=== PATIENT | male | born 1955 | race Caucasian/White ===

== ENCOUNTER 2016-05-07 16:48 | Emergency (ER) | payer MEDICARE ==
[~2016-05-07 16:48] MED LIST: ASPIRIN81 M2 PO; FISH OIL 1,0001 CAP PO; GARLIC1 CAP PO; LOSARTAN POTAS100 MG PO; LOVASTATIN20 M1 PO; MULTI-VITAMIN1 EAC1 PO
== END 2016-05-07 17:31 | disposition home or self-care (01) ==
LOC: CFTX 16:48
DX: R10.31 Right lower quadrant pain (principal); I10 Essential (primary) hypertension; E78.5 Hyperlipidemia, unspecified; F17.210 Nicotine dependence, cigarettes, uncomplicated; Z98.890 Other specified postprocedural states
CPT/HCPCS: 99283

== ENCOUNTER → 2016-05-13 | Outpatient (CLI) | payer MEDICARE ==
--- NOTE | ~2016-05-13 | CT2 ---
[facility] A Service of [facility] RADIOLOGY TEXT RESULTS PATIENT: LEESA SILVA SR LOCATION: [facility] : 51 UNIT #: [id number] AGE: [address]: Maikel Ny MD SEX: M ORDER DR: [id number] [facility]. [place], [place] [address] [id number] O MR#: [id number] Acc #: [id number] NAME: LEESA SILVA : 1955 SEX: M STUDY DATE/TIME: 05/13/2016 9:06 UNIT: [facility] ROOM: STUDY DESCRIPTION: CT Abd and Pelv W Cont Attending Physician: Maikel Ny M.D. Referring Physician: Maikel Ny M.D. Ordering Physician: Maikel Ny M.D. Primary Care Physician: Noe Armendariz M.D. MEDICAL IMAGING REPORT This report is preliminary unless electronic signature is present EXAM CT of the abdomen and pelvis with contrast INDICATION 61-year-old male with left abdominal pain for [address] of the abdomen and pelvis was performed following the administration of oral and IV contrast. Coronal and sagittal reformatted images were obtained. This CT exam was performed with one or more of the following radiation dose reduction techniques: automatic exposure control, adjustment of mA and/or kV according to patient size, and iterative reconstruction. COMPARISON 09/15/2010 FINDINGS The lung bases are clear. Cholelithiasis. Liver unremarkable. Spleen unremarkable. Kidneys are unremarkable. Stable tiny left adrenal gland myelolipoma. Stable tiny nodule in the right adrenal gland likely an adenoma. The pancreas is unremarkable. There are no dilated loops of bowel. There is no ascites. PELVIS: Sigmoid diverticulosis. No evidence of diverticulitis. No free fluid. Normal appendix. Small fat-containing right inguinal hernia. Bone windows demonstrate degenerative changes lumbar spine. IMPRESSION 1. Sigmoid diverticulosis. No evidence of diverticulitis. 2. Additional findings as described above. [facility] A Service of [facility] RADIOLOGY TEXT RESULTS PATIENT: LEESA SILVA SR LOCATION: [facility] : 51 UNIT #: [id number] AGE: [address]: Maikel Ny MD SEX: M ORDER DR: Dictated by... Otf Dunbar M.D. THIS IS AN ELECTRONICALLY VERIFIED REPORT Otf Dunbar M.D. at 05/14/2016 9:02 AM ADWOA/arthur TD: 05/13/2016 10:45 JOB #: [id number] MEDICAL IMAGING REPORT Page 1 of 1 COPY
[2016-05-13 09:35] LABS: POC - CREATININE 1.28 mg/dL (0.64-1.27)
== END | disposition home or self-care (01) ==
LOC: CCAT 07:27
PROVIDERS: Surgery
DX: R10.9 Unspecified abdominal pain (principal); K57.30 Diverticulosis of large intestine without perforation or abscess without bleeding
CPT/HCPCS: 74177; 82565; Q9967